=== PATIENT | male | born 1990 | race Caucasian/White ===

== ENCOUNTER 2018-09-20 10:30 | Emergency (ER) | payer OTHER ==
--- NOTE | 2018-09-20 11:29 | EDPHY ---
HPI/HX/ROS/PE/MDM Narrative: CHIEF COMPLAINT: Chest pain, jaw numbness HISTORY OF PRESENT ILLNESS: The patient is a 28 y/o male complaining of chest pain and jaw numbness. Patient was at work and developed discomfort in his upper chest and into this lower jaw. He has had this chest discomfort previously- but today was the first time he had discomfort into his jaw. IN the past, the chest discomfort was felt to be heartburn. Today, he did walk to a store, felt better after getting up and walking, and got some tums which improved the pain. However, as this was the first time he had felt discomfort into his jaw, he presented to the ED for further evaluation. No fever, chills, or shortness of breath. No palpitations, vomiting, or urinary complaints, no syncope or dizziness. Slight nausea. REVIEW OF SYSTEMS: Aside from elements discussed in the HPI, a comprehensive 10-point review of systems was reviewed and is negative. PAST MEDICAL HISTORY: Denies SOCIAL HISTORY: Nonsmoker. VITAL SIGNS: Reviewed by me GENERAL: Well-developed, well-nourished, resting comfortably in no respiratory distress. Reports pain is gone. HEENT: Atraumatic. Eyes: No icterus, no injection. Mouth: moist mucous membranes. No erythema or lesions. Neck: supple with no adenopathy. LUNGS: Clear to auscultation bilaterally, no wheezes, rhonchi or rales. CARDIAC: Regular rate and rhythm, no rubs, murmurs or gallops. No chest wall tenderness to palpation. No rash. ABDOMEN: Soft, nontender, nondistended, bowel sounds normal. BACK: No CVA tenderness. EXTREMITIES: No trauma. No edema. Range of motion is normal throughout. NEURO: Alert and oriented, grossly nonfocal. SKIN: Warm and dry, no rash. PSYCHIATRIC: Normal mentation, no agitation. Portions of this note were transcribed by a medical officer. I personally performed a history, physical exam, medical decision making, and confirmed accuracy of information the transcribed note. ED Course: 28 year old male with chest discomfort and jaw discomfort. EKG: no ischemic changes, NSR Troponin neg. CXR normal. Pain improved prior to presentation with tums. HEART SCORE: History: 0 EK Age: 0 Risk Factors: 0 Troponin: 0 Discussed with patient possible etiologies, including CAD, ACS, reflux, pericarditis, anxiety. He believe pain most likely related to GI causes. Offered admission and further workup in hospital; patient states will follow up as outpatient. See discharge instruction. MDM: After history and physical examination, the differential for chest pain was considered, including but not limited to, myocardial ischemia, acute coronary syndrome, pulmonary embolus, chest wall pain, gastric causes, reflux, pleural inflammation and pulmonary infectious causes. - Data Points Imaging Results: CXR: Impression: No acute intrathoracic abnormality. Dictated By: Felice Powers MD Imaging: I viewed and interpreted images myself Laboratory Results: Laboratory Results 09/20/18 11:30 09/20/18 11:30 Medications Given: Discontinued Medications Sodium Chloride (Ns) 500 mls @ 1,000 mls/hr IV EDNOW ONE PRN Reason: Protocol Stop: 09/20/18 12:22 Last Admin: 09/20/18 13:26 Dose: 500 mls Point of Care Test Results: Chemistry 09/20/18 11:31 POC Troponin I 0.00 ng/mL ng/mL (0.00-0.08) General Time Seen by Provider: 09/20/18 11:27 Initial Vital Signs: Initial Vital Signs Temperature (C) 36.7 C 09/20/18 10:36 Heart Rate 57 L 09/20/18 10:36 Respiratory Rate 18 09/20/18 10:36 Blood Pressure 109/63 09/20/18 10:36 O2 Sat (%) 98 09/20/18 10:36 O2 Delivery Mode Room Air Allergies/Adverse Reactions: No Known Allergies Allergy (Unverified 09/20/18 10:35) Home Medications: Medication Instructions Recorded NK [No Known Home Meds] 09/20/18 Departure - Departure Disposition: Home, Routine, Self-Care Clinical Impression: Chest pain Condition: Good Instructions: Chest Pain (ED) Additional Instructions: There is no evidence of cardiac disease at this time, pulmonary embolism, or pulmonary issues causing your chest discomfort. Since this discomfort has reoccurred on a number of occasions, I would urge you to follow up with the primary care physician and consider stress test. I also would suggest beginning a 2 week course of omeprazole. This is available [id number]. It will help with any reflux or heartburn. Referrals: GIL SEBASTIAN [Other] - As per Instructions Report Scribed for: Carmen Mauricio Report Scribed by: Britt Brand Date of Report: 09/20/18 Time of Report: 11:29
[2018-09-20] MEDS ORDERED: NS 500 ML IV ONE (11:53)
[2018-09-20 12:09] LABS: PLATELET COUNT 317 10^3/uL (150-400)
[2018-09-20 14:00] VITALS: BP 105/78
--- NOTE | 2018-09-20 16:08 | CPEKG ---
Test Reason : OPEN Blood Pressure : / mmHG Vent. Rate : 055 BPM Atrial Rate : 055 BPM P-R Int : 124 ms QRS Dur : 097 ms QT Int : 415 ms P-R-T Axes : 075 086 052 degrees QTc Int : 397 ms Sinus rhythm Confirmed by Carmen Mauricio ([id number]) on 09/20/2018 4:08:07 PM Referred By: Confirmed By:Carmen Mauricio
== END 2018-09-20 14:01 | disposition home or self-care (01) ==
DX: R07.9 Chest pain, unspecified (principal); R20.0 Anesthesia of skin
CPT/HCPCS: 84484-ER